=== PATIENT | male | born 2005 | race Caucasian/White ===

== ENCOUNTER 2024-12-31 14:42 | Outpatient (CLI) | payer OTHER, SELFPAY ==
[2024-12-31 23:05] LABS: Chlamydia DNA Amplified* NOT DETECTED (No Detected); GC DNA Amplified* NOT DETECTED (No Detected)
== END 2024-12-31 14:43 | disposition home or self-care (01) ==
PROVIDERS: Visit Provider Family Medicine
DX: Z11.3 Encounter for screening for infections with a predominantly sexual mode of transmission (principal)
CPT/HCPCS: 86592; 86703; 86706; 86803; 87340; 87491; 87591

== ENCOUNTER 2025-01-02 13:46 | Outpatient (CLI) | payer OTHER, SELFPAY ==
--- NOTE | 2025-01-02 14:00 | CRLHL7_ITS ---
For Patients: As a result of the Century Cures Act, medical imaging exams and procedure reports are released immediately into your electronic medical record. You may view this report before your referring provider. If you have questions, please contact your health care provider. INDICATION: FOLLOW UP TESTICULAR MASSES COMPARISON: 06/23/2021 TECHNIQUE: Ramires scale imaging was performed of the scrotum. In addition color Doppler and spectral Doppler analysis was performed of the testes. FINDINGS: The testes demonstrate normal arterial and venous blood flow on color Doppler and spectral Doppler analysis. Bilateral testicular microlithiasis noted. The right testis measures 5.9 x 2.6 x 3.3 cm in size and the left testis measures 5.4 x 2.5 x 3.1 cm. Left epididymal cyst measures 2 x 2 x 2 millimeters. Normal right epididymis. There is no evidence of a hydrocele or varicocele. Scrotal leandro again noted. IMPRESSION: Bilateral testicular microlithiasis. Dictated by Hayder Bernal MD @ 01/02/2025 4:11:24 PM (Electronically Signed)
== END 2025-01-02 13:47 | disposition home or self-care (01) ==
PROVIDERS: Visit Provider Family Medicine
DX: N50.89 Other specified disorders of the male genital organs (principal); R39.9 Unspecified symptoms and signs involving the genitourinary system
CPT/HCPCS: 76870; 93976